=== PATIENT | female | born 1940 ===

== ENCOUNTER 2022-09-07 05:45 | Day surgery (SDC) | payer OTHER | END 2022-09-07 11:55 | disposition home or self-care (01) | LOC: AMB-ENDOS 05:45 | PROVIDERS: ATTEND Colon & Rectal Surgery | DX: K56.699 Other intestinal obstruction unspecified as to partial versus complete obstruction (principal); K63.5 Polyp of colon; K57.30 Diverticulosis of large intestine without perforation or abscess without bleeding; K64.8 Other hemorrhoids ==

== ENCOUNTER 2023-01-20 05:50 | Day surgery (SDC) | payer OTHER ==
[~2023-01-20] VITALS: Ht 165.1 cm; Wt 81.6 kg
[~2023-01-20 05:50] MED LIST: EVISTA60 MG PO; LIPITOR40 M1 PO
== END 2023-01-20 13:05 | disposition home or self-care (01) ==
LOC: CIR.AMB 05:50 → AMB-ENDOS 09:45 → CIR.AMB 13:05
PROVIDERS: ATTEND Colon & Rectal Surgery
DX: K56.50 Intestinal adhesions [bands], unspecified as to partial versus complete obstruction (principal); N73.6 Female pelvic peritoneal adhesions (postinfective); K57.20 Diverticulitis of large intestine with perforation and abscess without bleeding; R19.4 Change in bowel habit; Z20.822 Contact with and (suspected) exposure to COVID-19; E78.5 Hyperlipidemia, unspecified